=== PATIENT | female | born 2000 | race Two or more races ===

== ENCOUNTER 2021-06-17 02:40 | Emergency (ER) | payer SELFPAY ==
[2021-06-17 08:52] LABS: Urine Bacteria NONE SEEN /hpf (None Seen); Urine Mucus FEW (None Seen); Urine WBC 16 /hpf (0 - 5)
[2021-06-17 09:22] LABS: Urine Blood 4+ /uL (Negative)
[2021-06-17 09:43] VITALS: BP 123/80
== END 2021-06-17 10:05 | disposition home or self-care (01) ==
LOC: ER 02:40
DX: O46.91 Antepartum hemorrhage, unspecified, first trimester (principal); Z3A.01 Less than 8 weeks gestation of pregnancy
CPT/HCPCS: 36415; 76801; 76817; 81001; 84702

== ENCOUNTER 2021-10-23 09:59 | Emergency (ER) | payer MEDICAID ==
[~2021-10-23] VITALS: Ht 154.9 cm; Wt 59.0 kg
[2021-10-23 10:00] VITALS: BP 110/67
[2021-10-23 10:56] LABS: Urine Bacteria MOD /hpf (None Seen); Urine Blood 3+ /uL (Negative); Urine Mucus FEW (None Seen); Urine Specific Gravity 1.021 (1.001-1.035); Urine WBC 1828 /hpf (0 - 5); Urine WBC Clumps PRESENT /hpf (None Seen)
[2021-10-23] MEDS ORDERED: cefTRIAXone SOD 1,000 MG VL IM ONE (11:00)
[2021-10-23] MEDS ORDERED: PHEN200T16 PO (11:07)
[2021-10-23] MEDS ORDERED: NITR-87 PO (11:07)
== END 2021-10-23 11:23 | disposition home or self-care (01) ==
LOC: ER 09:59
DX: O23.42 Unspecified infection of urinary tract in pregnancy, second trimester (principal); Z3A.18 18 weeks gestation of pregnancy
CPT/HCPCS: 81001; 96372; 99283; J0696

== ENCOUNTER → 2022-02-14 | Outpatient (CLI) | payer MEDICAID ==
[~2022-02-14] MED LIST: ACYC-166 PO; NITR-87 PO; PHEN200T16 PO; PREN-96 PO
[2022-02-14 12:13] LABS: Basophils # (auto) 0.1 10 ^3/uL (0-0.2); Basophils % (auto) 0.8 % (0.0-2.0); Eosinophils # (auto) 0.1 10 ^3/uL (0-0.8); Eosinophils % (auto) 1.2 % (0.0-7.0); Hematocrit 35.9 % (36.0-46.0); Hemoglobin 11.9 g/dL (12.2-16.2); Lymphocytes # (auto) 2.7 10 ^3/uL (0.4-5.4); Lymphocytes % (auto) 37.3 % (10.0-50.0); Mean Corpuscular Hemoglobin 30.3 pg (28.0-32.0); Mean Corpuscular Hgb Conc. 33.3 g/dL (32.0-36.0); Mean Corpuscular Volume 91.2 fL (80.0-100.0); Monocytes # (auto) 0.5 10 ^3/uL (0-1.3); Monocytes % (auto) 6.7 % (0.0-12.0); Neutrophils # (auto) 3.9 10 ^3/uL (1.6-8.6); Red Blood Cells 3.94 10^6/uL (4.0-5.20); Red Cell Distribution Width 13.3 % (11.8-14.3); White Blood Cell 7.2 10^3/uL (4.4-10.8)
== END | disposition home or self-care (01) ==
LOC: LAB 10:59
PROVIDERS: ATTEND Obstetrics & Gynecology
DX: Z34.80 Encounter for supervision of other normal pregnancy, unspecified trimester (principal); Z3A.00 Weeks of gestation of pregnancy not specified
CPT/HCPCS: 36415; 82951; 85025; 86703; 87086

== ENCOUNTER 2022-02-15 15:05 | Observation (INO) | payer MEDICAID ==
[~2022-02-15 15:05] MED LIST changes: -ACYC-166 PO; -PREN-96 PO
[2022-02-15] MEDS ORDERED: BETAMETHASONE ACET (30mg/5ml) 5ml Vial 6mg/ml IM ONE ×2 (16:45→17:15)
[2022-02-15] MEDS ORDERED: PREN-96 PO (18:39)
== END 2022-02-15 18:48 | disposition home or self-care (01) ==
LOC: UNDOADMOB 15:05 → LDRP 15:05 → UNDODISOB 18:48
PROVIDERS: ADMIT Obstetrics & Gynecology; ATTEND Obstetrics & Gynecology
DX: O36.5930 Maternal care for other known or suspected poor fetal growth, third trimester, not applicable or unspecified (principal); Z3A.34 34 weeks gestation of pregnancy
CPT/HCPCS: 59025; 76818; 81002; 94760; 96372; G0378

== ENCOUNTER 2022-02-16 07:27 | Observation (INO) | payer MEDICAID ==
[~2022-02-16] VITALS: Ht 154.9 cm; Wt 66.7 kg
[~2022-02-16 07:27] MED LIST changes: +PREN-96 PO
[2022-02-16] MEDS ORDERED: BETAMETHASONE ACET (30mg/5ml) 5ml Vial 6mg/ml IM ONE (16:45)
== END 2022-02-16 17:53 | disposition home or self-care (01) ==
LOC: LDRP 16:21
PROVIDERS: ADMIT Obstetrics & Gynecology; ATTEND Obstetrics & Gynecology
DX: O36.5930 Maternal care for other known or suspected poor fetal growth, third trimester, not applicable or unspecified (principal); O62.9 Abnormality of forces of labor, unspecified; O26.893 Other specified pregnancy related conditions, third trimester; R51.9 Headache, unspecified; Z3A.34 34 weeks gestation of pregnancy
CPT/HCPCS: 59025; 81002; 96372; G0378

== ENCOUNTER 2022-02-21 06:56 | Observation (INO) | payer MEDICAID ==
[2022-02-21] MEDS ORDERED: ACYC-166 PO (13:17)
== END 2022-02-21 13:27 | disposition home or self-care (01) ==
LOC: LDRP 10:15 → UNDOADMOB 10:15 → LDRP 12:27 → UNDODISOB 13:27
PROVIDERS: ADMIT Obstetrics & Gynecology; ATTEND Obstetrics & Gynecology
DX: O36.5930 Maternal care for other known or suspected poor fetal growth, third trimester, not applicable or unspecified (principal); O36.8930 Maternal care for other specified fetal problems, third trimester, not applicable or unspecified; Z3A.35 35 weeks gestation of pregnancy
CPT/HCPCS: 59025; 76818; 81002; G0378